=== PATIENT | female | born 1950 | race Caucasian/White ===

== ENCOUNTER 2022-03-25 08:07 | Outpatient (CLI) | payer MEDICARE, SELFPAY ==
--- NOTE | 2022-03-25 08:15 | CRLHL7_ITS ---
For Patients: As a result of the Century Cures Act, medical imaging exams and procedure reports are released immediately into your electronic medical record. You may view this report before your referring provider. If you have questions, please contact your health care provider. BILATERAL SCREENING DIAGNOSTIC MAMMOGRAM WITH COMPUTER-AIDED DETECTION AND TOMOSYNTHESIS CLINICAL HISTORY: Screening. TECHNIQUE: CC and MLO views were obtained. These mammographic images have been obtained using full-field digital technique. These mammographic images were interpreted with the benefit of computer-aided detection. Breast Tomosynthesis was used in this interpretation. COMPARISON FILM: 11/15/2019. BREAST COMPOSITION: There are scattered areas of fibroglandular density. FINDINGS: 1 cm possible asymmetry RIGHT superior breast 6 cm from the nipple. Negative findings LEFT breast. IMPRESSION: Possible RIGHT breast asymmetry. ASSESSMENT: BI-RADS Category 0: Incomplete: Need Additional Imaging Evaluation and/or Prior Mammograms for Comparison RECOMMENDATION: Recommend MLO spot compression view and a 90-degree lateral view. Additionally, ultrasound may be needed during the diagnostic evaluation. The [facility] will contact the patient for follow-up. A lay language report of this examination will be provided to the patient. Yolande Carlisle M.D. Diagnostic/Breast Radiologist [email or web address] STUART/tia weber/Dictated by: Yolande Carlisle MD @ 03/25/2022 11:30:00 AM (Electronically Signed)
== END 2022-03-25 08:08 | disposition home or self-care (01) ==
PROVIDERS: PCP Family Medicine; Visit Provider Family Medicine
DX: Z12.31 Encounter for screening mammogram for malignant neoplasm of breast (principal); R92.8 Other abnormal and inconclusive findings on diagnostic imaging of breast; N63.10 Unspecified lump in the right breast, unspecified quadrant
CPT/HCPCS: 77063; 77067

== ENCOUNTER 2022-04-01 09:28 | Outpatient (CLI) | payer MEDICARE, BC, SELFPAY ==
--- NOTE | 2022-04-01 09:45 | CRLHL7_ITS ---
For Patients: As a result of the Cures Act, medical imaging exams and procedure reports are released immediately into your electronic medical record. You may view this report before your referring provider. If you have questions, please contact your health care provider. DIGITAL DIAGNOSTIC RIGHT MAMMOGRAM USING TOMOSYNTHESIS AND COMPUTER-AIDED DETECTION RIGHT BREAST ULTRASOUND CLINICAL HISTORY: RIGHT breast mass/asymmetry. COMPARISON: 03/25/2022. TECHNIQUE: Digital RIGHT mammogram in two projections. Tomosynthesis and CAD utilized. Real-time ultrasound imaging of RIGHT breast with imaging documentation. BREAST COMPOSITION: There are areas of scattered fibroglandular density. FINDINGS: 3D spot compression MLO and 3D true lateral RIGHT breast mammograms submitted. Persistent asymmetric density upper RIGHT breast without architectural distortion or suspicious calcifications. Targeted RIGHT breast ultrasound performed at 12 o`clock 4 cm from the nipple. In this location is a small subcutaneous bruise/hematoma corresponding to the additional clinical history of injury associated with her dog. No suspicious mass or fluid collection. No abscess. IMPRESSION: Incidental subcutaneous bruise/hematoma measuring less than 1 cm RIGHT breast 12 o`clock 4 cm from the nipple. No evidence of malignancy. RECOMMENDATIONS: Annual BILATERAL screening mammography. Results and recommendations discussed with the patient. BI-RADS Category 2: Benign A lay language report of this examination will be provided to the patient. Dictated by Angelo Faulkner MD @ 04/01/2022 11:00:42 AM j/Dictated by: Angelo Faulkner MD @ 04/01/2022 11:01:00 AM (Electronically Signed)
--- NOTE | 2022-04-01 10:15 | CRLHL7_ITS ---
For Patients: As a result of the Cures Act, medical imaging exams and procedure reports are released immediately into your electronic medical record. You may view this report before your referring provider. If you have questions, please contact your health care provider. PLEASE SEE DIGITAL DIAGNOSTIC RIGHT MAMMOGRAM PERFORMED SAME DAY CRL:tia weber/Dictated by: Angelo Faulkner MD @ 04/01/2022 11:00:00 AM (Electronically Signed)
== END 2022-04-01 09:29 | disposition home or self-care (01) ==
LOC: MAMMO 09:28
PROVIDERS: PCP Family Medicine; Visit Provider Family Medicine
DX: N63.10 Unspecified lump in the right breast, unspecified quadrant (principal); R92.8 Other abnormal and inconclusive findings on diagnostic imaging of breast
CPT/HCPCS: 76642; 77065; G0279

== ENCOUNTER 2023-07-29 15:27 | Outpatient (CLI) | payer MEDICARE, BC, SELFPAY ==
--- NOTE | 2023-07-29 16:00 | CRLHL7_ITS ---
For Patients: As a result of the Century Cures Act, medical imaging exams and procedure reports are released immediately into your electronic medical record. You may view this report before your referring provider. If you have questions, please contact your health care provider. INDICATION: ABD PAIN TECHNIQUE: CT abdomen and pelvis acquired with 100 cc Isovue 370 IV contrast. COMPARISON: None. FINDINGS: Lower chest: 1 millimeter right lower lobe indeterminate pulmonary nodule. Trace pericardial fluid. Dense mitral annular calcifications. ABDOMEN: Liver: Likely diffuse hepatic steatosis. Gallbladder and biliary: Normal gallbladder without radiopaque stone. Normal caliber bile ducts. Spleen: Normal size and enhancement. Pancreas: Normal enhancement without peripancreatic inflammatory changes or ductal dilatation. Adrenal glands: Normal adrenal glands. Kidneys and ureters: Normal enhancement. No radio-opaque calculi. No hydroureteronephrosis. GI tract: The stomach is relatively decompressed. Normal caliber small and large bowel loops. Appendix is not definitively visualized. Colonic diverticulosis with adjacent inflammatory stranding at the level of the sigmoid. Vascular structures: Normal caliber aorta with atherosclerotic calcifications. Lymph nodes: No lymphadenopathy in the abdomen or pelvis by size criteria. Peritoneum: No free air, free fluid, or focal drainable fluid collection. PELVIS: Genitourinary system: Normal urinary bladder. Age-appropriate uterus. SKELETAL STRUCTURES AND SOFT TISSUES: Lumbar spondylosis. IMPRESSION: Acute uncomplicated diverticulitis. Please note that all CT scans at this facility use dose modulation, iterative reconstruction, and/or weight-based dosing when appropriate to reduce radiation dose to as low as reasonably achievable. Dictated by Angelo Ochoa MD @ 07/29/2023 4:29:52 PM (Electronically Signed)
== END 2023-07-29 15:28 | disposition home or self-care (01) ==
LOC: CT 15:28
PROVIDERS: PCP Family Medicine; Visit Provider Family Medicine
DX: R10.9 Unspecified abdominal pain (principal); K57.92 Diverticulitis of intestine, part unspecified, without perforation or abscess without bleeding; R10.2 Pelvic and perineal pain
CPT/HCPCS: 74177; Q9967

== ENCOUNTER 2023-09-12 06:09 | Outpatient (CLI) | payer MEDICARE, BC, SELFPAY ==
--- NOTE | 2023-09-12 08:09 | W.ANESCHARGE ---
Anesthesia Charges Start Date/Time Anesthesia Start Date: 09/12/23 Anesthesia Start Time: 07:30 Stop Date/Time Anesthesia Stop Date: 09/12/23 Anesthesia Stop Time: 08:07
--- NOTE | 2023-09-12 08:33 | W.ANESCHARGE ---
Anesthesia Charges Start Date/Time Anesthesia Start Date: 09/12/23 Anesthesia Start Time: 07:30 Stop Date/Time Anesthesia Stop Date: 09/12/23 Anesthesia Stop Time: 08:07 Summary Extremes of Age - Over 70 or under 1: MDA
== END 2023-09-12 06:10 | disposition home or self-care (01) ==
LOC: OP CLINIC 06:09
PROVIDERS: PCP Family Medicine; Visit Provider Surgery
DX: Z12.11 Encounter for screening for malignant neoplasm of colon (principal); K63.5 Polyp of colon; K57.30 Diverticulosis of large intestine without perforation or abscess without bleeding; K64.4 Residual hemorrhoidal skin tags; Z86.010 Personal history of colon polyps
CPT/HCPCS: 00811; 45385; 88305; 99100; J2704

== ENCOUNTER 2023-09-14 07:43 | Outpatient (CLI) | payer MEDICARE, BC, SELFPAY ==
--- NOTE | 2023-09-14 08:15 | MM_ITS ---
Patient: BANDAR VINSON Facility:?[facility] Patient ID:?[id number] Site Patient ID:?[id number]. Site :?[id number] Study:?XRay-Breast Bilateral 3D W/CAD-09/14/2023 8:18:07 AM Ordering Physician:?Jonny Briceño Final Report: BILATERAL SCREENING MAMMOGRAM WITH COMPUTER-AIDED DETECTION AND TOMOSYNTHESIS TECHNIQUE: CC and MLO views were obtained. These mammographic images have been obtained using full-field digital technique. These mammographic images were interpreted with the benefit of computer-aided detection. Breast Tomosynthesis was used in this interpretation. COMPARISON FILM: 04/01/22, 03/25/22, 11/18/20. FINDINGS: There are scattered areas of fibroglandular density. IMPRESSION: There is no radiographic evidence for malignancy. ASSESSMENT: BI-RADS Category 2: Benign RECOMMENDATION: Routine screening mammogram in 1 year. A lay language report of this examination will be provided to the patient. Angelo Faulkner M.D. Diagnostic Radiologist [email or web address] DSM/sp R& Transcribed: 4:45 p.m. SP/Dictated by: Angelo Faulkner MD @ 09/23/2023 1:07:00 PM Signed by:?Angelo Faulkner MD @09/23/2023 4:48:20 PM (Electronic Signature)
== END 2023-09-14 07:44 | disposition home or self-care (01) ==
LOC: MAMMO 07:44
PROVIDERS: PCP Family Medicine; Visit Provider Family Medicine
DX: Z12.31 Encounter for screening mammogram for malignant neoplasm of breast (principal); Z00.00 Encounter for general adult medical examination without abnormal findings; E78.5 Hyperlipidemia, unspecified; E66.9 Obesity, unspecified; F32.A Depression, unspecified; Z13.21 Encounter for screening for nutritional disorder; Z13.29 Encounter for screening for other suspected endocrine disorder; Z13.1 Encounter for screening for diabetes mellitus
CPT/HCPCS: 77063; 77067; 80048; 80061; 82607; 84443

== ENCOUNTER 2023-10-10 12:38 | Outpatient (CLI) | payer MEDICARE, BC, SELFPAY | END 2023-10-10 12:39 | disposition home or self-care (01) | LOC: AMB 10-17 16:16 | PROVIDERS: PCP Family Medicine; Visit Provider Family Medicine | DX: K92.0 Hematemesis (principal) | CPT/HCPCS: A0425; A0427 ==

== ENCOUNTER 2023-10-10 13:34 | Emergency (ER) | payer MEDICARE, BC, SELFPAY ==
[2023-10-10] VITALS (10 sets, daily range): BP systolic 127–180; BP diastolic 71–121; PULSE 99–128; RESP 12–20; TEMP 37.1; O2SAT 92–99; BMI 33.3
--- NOTE | 2023-10-10 14:13 | ED.NAVMDI ---
HPI - Nausea/Vomiting/Diarrhea General Time Seen by Provider: 14:13 Date Seen: 10/10/23 Chief complaint: Nausea/Vomiting Stated complaint: Vomiting Time Seen by Provider: 10/10/23 13:56 Source: patient, EMS and RN notes reviewed Mode of arrival: EMS Limitations: no limitations History of Present Illness HPI Narrative: This patient is coming into the ED via EMS with complaint of abdominal discomfort, vomiting/ongoing nausea and diarrhea. Her symptoms started last night. She states that she was initially throwing up bile but this am noticed some blood in the emesis. She is not having large volumes of juan blood coming up. No fevers/chills noted. Has not had any recent travel. She told nursing staff that she wasn't having any pain but does tell me that her stomach in general is uncomfortable. She has had history of diverticulitis, history of a tubal ligation, history of section, history of appendectomy. She notes that the bile burned her lower lip, she states she is sure that the bile going over lower lip irritated it. She feels like her throat hurts to come hurts to swallow, this started after the vomiting. She states EMS could not get an IV but did give her oral Zofran which has helped her nausea. MD elicited complaint: nausea, vomiting, diarrhea and abdominal pain Related Data Home Medications Medication Instructions Recorded Confirmed ascorbate calcium (vitamin C) 500 1 g PO QDAY 10/04/22 09/14/23 mg tablet cholecalciferol (vitamin D3) 125 125 mcg PO QDAY 10/04/22 09/14/23 mcg (5,000 unit) tablet (Vitamin D3) folic acid 1 mg tablet 3 mg PO QDAY 10/04/22 09/14/23 multivitamin 1 tab PO QAM 10/04/22 09/14/23 infliximab 100 mg intravenous 400 mg IV Q8W 03/24/23 09/14/23 solution methotrexate sodium 2.5 mg tablet 0.9 mg PO .Weekly 03/24/23 09/14/23 turmeric 400 mg capsule 400 mg PO .QD 03/24/23 09/14/23 elderberry fruit 200 mg capsule mg PO 09/14/23 09/14/23 prednisone 2.5 mg tablet 2.5 mg PO Q OTHER DAY 09/14/23 09/14/23 Previous Rx's Medication Instructions Recorded epinephrine 0.3 mg/0.3 mL 0.3 mg (0.3 mL) IM Q4H PRN 05/18/22 injection, auto-injector (EpiPen anaphylaxis #2 ea 2-Harjinder) fluocinonide 0.05 % topical 1 applic topical BID #60 mL 10/04/22 solution diphenhydramine HCl 25 mg tablet 25 mg PO Q6H PRN allergic reaction 01/07/23 #30 tabs alprazolam 0.25 mg tablet 0.25 mg PO TID PRN anxiety #30 tabs 08/19/23 clonazepam 0.5 mg tablet 0.5 mg PO BID PRN anxiety #30 tabs 08/19/23 albuterol sulfate 90 mcg/actuation 2 puff inhalation QID PRN 09/14/23 aerosol inhaler (Ventolin HFA) shortness of breath or wheezing #25.5 grams atorvastatin 10 mg tablet 10 mg PO QHS #90 tabs 09/14/23 escitalopram oxalate 10 mg tablet 10 mg PO QDAY #90 tabs 09/14/23 Allergies Allergy/AdvReac Type Severity Reaction Status Date / Time bee venom protein (honey bee) Allergy Severe Anaphylaxis Verified 10/10/23 16:29 codeine Allergy Severe Difficulty Verified 10/10/23 16:29 Breathing erythromycin base Allergy Severe Difficulty Verified 10/10/23 16:29 Breathing Penicillins Allergy Severe Difficulty Verified 10/10/23 16:29 Breathing Sulfa (Sulfonamide Allergy Severe throat Verified 10/10/23 16:29 Antibiotics) swelling infliximab [From Remicade] Allergy Unknown Verified 10/10/23 16:29 Influenza A virus Allergy Severe throat Uncoded 10/10/23 16:29 swelling Review of Systems Status of ROS: Reports: 6 or more systems reviewed and unremarkable except as noted in History and below [facility] Medical History Diverticulitis ?K57.92 - Diverticulitis of intestine, part unspecified, without perforation or abscess without bleeding (ICD-10) Anaphylactic reaction ?T78.2XXA - Anaphylactic shock, unspecified, initial encounter (ICD-10) Surgical History History of tubal ligation ?Z98.51 - Tubal ligation status (ICD-10) History of tonsillectomy and adenoidectomy ?Z90.89 - Acquired absence of other organs (ICD-10) History of section ?Z98.891 - History of uterine scar from previous surgery (ICD-10) History of breast biopsy ?Z98.890 - Other specified postprocedural states (ICD-10) History of appendectomy ?Z90.49 - Acquired absence of other specified parts of digestive tract (ICD-10) Social History Smoking Status: Former smoker Non-prescribed substance use: denies use Little interest or pleasure in doing things: nearly every day Feeling down, depressed, or hopeless: nearly every day Exam Const: Vital Signs, click to edit/add: Vital Signs - 24 hr 10/10/23 13:40 10/10/23 15:28 10/10/23 16:01 Temperature 98.7 F Pulse Rate 109 H Pulse Rate [Right Pulse Oximeter] 128 H Pulse Rate [orthos tatic lying Pulse Oximeter] Pulse Rate [orthos tatic sitting Puls e Oximeter] Pulse Rate [orthos tatic standing Pul se Oximeter] Respiratory Rate 20 16 Blood Pressure 180/98 H Blood Pressure [Ri ght Upper Arm] 171/103 H Blood Pressure [or thostatic lying Ri ght Arm] Blood Pressure [or thostatic sitting Right Arm] Blood Pressure [or thostatic standing Right Arm] Pulse Oximetry 99 93 94 Oxygen Delivery Me thod Room Air 10/10/23 17:02 10/10/23 17:32 10/10/23 18:02 Temperature Pulse Rate 110 H 109 H 111 H Pulse Rate [Right Pulse Oximeter] Pulse Rate [orthos tatic lying Pulse Oximeter] Pulse Rate [orthos tatic sitting Puls e Oximeter] Pulse Rate [orthos tatic standing Pul se Oximeter] Respiratory Rate 14 14 14 Blood Pressure 172/96 H 158/93 H 133/92 H Blood Pressure [Ri ght Upper Arm] Blood Pressure [or thostatic lying Ri ght Arm] Blood Pressure [or thostatic sitting Right Arm] Blood Pressure [or thostatic standing Right Arm] Pulse Oximetry 92 92 93 Oxygen Delivery Me thod 10/10/23 18:33 10/10/23 19:02 Temperature Pulse Rate 109 H Pulse Rate [Right Pulse Oximeter] Pulse Rate [orthos tatic lying Pulse Oximeter] 106 H Pulse Rate [orthos tatic sitting Puls e Oximeter] 114 H Pulse Rate [orthos tatic standing Pul se Oximeter] 113 H Respiratory Rate 12 Blood Pressure 159/121 H Blood Pressure [Ri ght Upper Arm] Blood Pressure [or thostatic lying Ri ght Arm] 164/92 H Blood Pressure [or thostatic sitting Right Arm] 164/96 H Blood Pressure [or thostatic standing Right Arm] 172/103 H Pulse Oximetry 96 Oxygen Delivery Me thod This 73-year-old female is alert, interactive, no apparent distress, lying in exam bed 2. She looks like she does not feel well, face flushed without rash but is able speak in complete sentences, is very pleasant. Sclera clear, pupils equal round, conjugate gaze. Oropharynx with dry mucosa not glistening. Her lower lip is slightly to the right with asymmetrical swelling. Appears to maybe be about twice swollen what it normally is. In her posterior pharynx her uvula is mildly erythematous and swollen. Her speech is otherwise normal, neck is supple without any adenopathy or masses. Lungs are clear, good air entry, no wheezing or crackles. CV regular rate and rhythm, no murmur. Abdomen is obese but soft, bowel sounds are active but not overly so. She has some mild diffuse tenderness but no rebound or guarding. No masses felt. Documenting provider has reviewed patient's vital signs: yes Course Course ED Course: We will initiate an IV, IV fluids and Zofran. Does look like patient has had some forceful vomiting with her uvula and soft palate becoming edematous, lower lip irritated to either by the forceful vomiting or as she said the bile going over the lower lip. No evidence of any airway compromise, do not think this is an allergic reaction. We will get full complement of labs, consider abdominal imaging once I have seen some of her labs back. Did also order IV Protonix for any component of possible gastritis, Jessica-Pizarro tear. Reevaluation(s) Time of Reevaluation #1: 15:54 Reevaluation #1: Reviewed with patient that her white blood count is significantly elevated at 23,000 three thousand. She states her headache is worsening a bit. She remembers she had a spell similar to this where she ended up at [facility], had a headache, had nausea vomiting and diarrhea. She states her blood pressure spiked with it. They believed to be COVID per her report. Likely not COVID in the setting the with the elevated white blood count but will do the test given her concerns. She states she has only had 1 COVID vaccination because she is allergic to it. Time of Reevaluation #2: 17:59 Time of Reevaluation #3: 18:08 Reevaluation #3: Reviewed with patient that her abdominal CT showing no acute pathology. She states when she went to the bathroom and wipes she found blood on the underwear, states it is coming from her rectal area. She was able to get up out of the bed, had her lean over, she has large non thrombosed hemorrhoidal tissue, can see a little piece of blood clot. Reviewed with her that she has hemorrhoids that are likely bleeding. Nothing is actively extravasating at this time. With the recurrent diarrhea, the wiping has probably aggravated this. Her is here now, she states she is terrified of going home, terrified of her symptoms returning. She does not think she can do it. I did order another L of lactated Ringer's, some Reglan and Benadryl for her headache as well as some recurrent nausea and abdominal discomfort she is feeling. We reviewed that this is very likely a viral gastroenteritis, she is on immune modulating medicines for her psoriatic arthritis. She states she picks up things quite easily. We discussed Jessica-Pizarro tear from forceful vomiting. This should be a self-limited condition, do think it will be so for her as we have seen no recurrent have a dense of any upper GI bleeding. Additional Reevaluation(s): 7:43 p.m.: Did have orthostatics done after talking to our hospitalist. Patient is not orthostatic. Her is worried about her going home, just wants her to be comfortable. I have spent some time discussing with them viral gastroenteritis. Hopefully the nausea and vomiting will not return as it was. We can send her home with [facility], they are going to get this from [facility]. Her lower lip hang in uvula are not any more swollen, in fact maybe look a little better. She has developed no other stigmata that would suggest that this was an allergic reaction, her clinical history is reported that this is likely a viral gastroenteritis given her workup here. Her headache in stomach symptoms are better after the subsequent fluids, Reglan and and Benadryl. We have discussed that the diarrhea will likely continue, do not recommend antidiarrheals in an acute diarrheal illness, certainly not at this point anyway. She has no evidence of a surgical abdomen, no evidence of needing ongoing fluid resuscitation. We have reviewed should she worsen, they are expected to return, re-evaluation can be done. With the patient not exhibiting true orthostatic changes, our hospitalist did not feel like she requires hospitalization. She did have a small pulse rise but her blood pressure actually went up as well. Vital Signs Vital signs: Initial Vital Signs Temperature 98.7 F 10/10/23 13:40 Temperature Source Temporal Artery Scan 10/10/23 13:40 Pulse Rate 128 H 10/10/23 13:40 Respiratory Rate 20 10/10/23 13:40 Blood Pressure 171/103 H 10/10/23 13:40 Blood Pressure Mean 125 H 10/10/23 13:40 Blood Pressure Position Sitting 10/10/23 13:40 Pulse Oximetry 99 10/10/23 13:40 Oxygen Delivery Method Room Air 10/10/23 13:40 Vital Signs Temperature 98.7 F 10/10/23 13:40 Pulse Rate 128 H 10/10/23 13:40 Respiratory Rate 20 10/10/23 13:40 Blood Pressure 171/103 H 10/10/23 13:40 Pulse Oximetry 99 10/10/23 13:40 Oxygen Delivery Method Room Air 10/10/23 13:40 Temperature 98.7 F 10/10/23 13:40 Pulse Rate 106 H 10/10/23 19:02 Respiratory Rate 12 10/10/23 18:33 Blood Pressure 164/92 H 10/10/23 19:02 Pulse Oximetry 96 10/10/23 18:33 Oxygen Delivery Method Room Air 10/10/23 13:40 Medications Administered Medications: Generic Name Dose Route Start Last Admin Trade Name Freq PRN Reason Stop Dose Admin Diphenhydramine HCl 25 mg 10/10/23 17:57 10/10/23 18:30 Diphenhydramine 50 Mg/Ml Inj IVP 10/10/23 17:58 25 mg ONCE ONE Administration Lactated Ringer's 1,000 mls @ 500 mls/hr 10/10/23 17:58 10/10/23 18:30 Lactated Ringers 1000 Ml IV 10/10/23 19:57 500 mls/hr .Q2H MAXIM Administration Metoclopramide HCl 10 mg/ 102 mls @ 306 mls/hr 10/10/23 17:57 10/10/23 18:50 Sodium Chloride IVPB 10/10/23 17:58 Infused ONCE ONE Infusion Discontinued Medications Generic Name Dose Route Start Last Admin Trade Name Freq PRN Reason Stop Dose Admin Sodium Chloride 1,000 mls @ 500 mls/hr 10/10/23 14:27 10/10/23 17:35 0.9 % Sodium Chloride 1000 Ml IV 10/10/23 16:26 Infused .Q2H MAXIM Infusion Ondansetron HCl 4 mg 10/10/23 14:25 10/10/23 15:28 Ondansetron 2 Mg/Ml Inj IVP 10/10/23 14:26 4 mg ONCE ONE Administration Pantoprazole Sodium 40 mg 10/10/23 14:28 10/10/23 15:28 Pantoprazole Sodium 40 Mg Inj IVP 10/10/23 14:29 40 mg ONCE ONE Administration MDM - Nausea/Vomiting/Diarrhea Lab Data Attestation: I reviewed the patient's lab results. Labs: Lab Results 10/10/23 10/10/23 Range/Units 15:28 16:40 WBC 23.51 H (4.50-11.00) K/uL RBC 4.76 (4.00-5.20) m/uL Hgb 15.1 (12.0-16.0) gm/dL Hct 44.1 (33.0-51.0) % MCV 93 (80-100) fL MCH 32 (26-34) pg MCHC 34 (32-36) gm/dL RDW Coeff of Adalberto 13.0 (11.5-15.5) % Plt Count 352 (140-440) K/uL Neut % (Auto) 90.0 H (42.0-72.0) % Lymph % (Auto) 5.4 L (20-44) % Curry % (Auto) 4.4 (0.0-11.0) % Eos % (Auto) 0.0 (0.0-7.0) % Baso % (Auto) 0.0 (0.0-3.0) % Neut # (Auto) 21.20 H (1.7-7.0) K/uL Lymph # (Auto) 1.30 (0.90-2.90) K/uL Curry # (Auto) 1.00 H (0.00-0.90) K/UL Eos # (Auto) 0.00 (0.00-0.50) K/uL Baso # (Auto) 0.00 (0.00-0.30) K/uL Abs Immat Gran (auto) 0.00 (0.00-0.30) K/uL Imm/Tot Granulo (auto) 0.2 % Diff Slide Review Acceptable Review (Acceptable) Sodium 137 (135-149) mmol/L Potassium 3.7 (3.6-5.1) mmol/L Chloride 102 (96-114) mmol/L Carbon Dioxide 29 (20-32) mmol/L Anion Gap 6 L (7-15) mEq/L BUN 14 (7-30) mg/dL Creatinine 0.6 (0.5-1.5) mg/dL Estimated Creat Clear 46.43 Estimated GFR 96 ml/min Glucose 133 H (60-115) mg/dL Lactate 1.3 (0.5-1.9) mmol/L Calcium 11.2 H (8.4-10.6) mg/dL Total Bilirubin 1.8 H (0.1-1.5) mg/dL Direct Bilirubin 0.0 (0.0-0.5) mg/dL AST 32 (12-35) U/L ALT 36 H (4-35) U/L Alkaline Phosphatase 91 (40-150) U/L C-Reactive Protein 1.0 (0.5-1.0) mg/dL Total Protein 8.0 (6.0-8.3) g/dL Albumin 4.8 (3.3-5.0) g/dL SARS-CoV-2 (PCR) Negative SARS-CoV-2 (Negative) Influenza Type A (PCR) Negative PCR FLU A (Negative) Influenza Type B (PCR) Negative PCR FLU B (Negative) RSV (PCR) Negative PCR RSV (Negative) Imaging Data CT scan - abdomen: Attestation: I have reviewed the pertinent imaging results. Radiologist's impression: Patient: BANDAR VINSON Facility:[facility] Patient ID:?[id number] Site Patient ID:?[id number]. Site :?[id number] Study:?CT-Abdomen/Pelvis W/ 98CC ISOVUE 370-10/10/2023 4:35:54 PM Ordering Physician:SUNITA Final Report: INDICATION: Abdominal pain with nausea, vomiting and diarrhea. Leukocytosis. TECHNIQUE: CT abdomen and pelvis acquired with 98 cc Isovue 370 IV contrast. COMPARISON: None. FINDINGS: Lower chest: Unremarkable. Liver: Fatty infiltration. No focal Gallbladder and bile ducts: Lesion. Pancreas: Unremarkable. No mass or inflammation. Spleen: Unremarkable. Normal in size. No masses. Adrenal glands: Unremarkable. No nodules. Kidneys: Unremarkable. No suspicious masses, stones, or hydronephrosis. GI tract: Mild wall thickening amongst multiple diverticula in the sigmoid colon. This could represent chronic diverticular inflammation. GI tract otherwise unremarkable. Post appendectomy. Vasculature: Abdominal aorta is normal in caliber. Mesenteric arteries are patent. Lymph nodes: No lymphadenopathy. Peritoneum/Abdominal Wall: Unremarkable. No sign of mass or infiltration. No free air or significant free fluid. Pelvis: Unremarkable. Bones: No suspicious bone lesion. Moderate midbody compression deformity of the L1 vertebral body. Posterior disc protrusion at L4-5. IMPRESSION: No acute or specific finding to explain abdominal pain or leukocytosis. Please note that all CT scans at this facility use dose modulation, iterative reconstruction, and/or weight-based dosing when appropriate to reduce radiation dose to as low as reasonably achievable. Dictated by Jonathan Roldan MD @ 10/10/2023 5:09:02 PM (Electronic Signature) Discharge Plan Discharge Clinical Impression: Gastroenteritis and colitis, viral Patient Disposition: Home, Self-Care Condition: Stable Instructions: Gastroenteritis (ED), Nutrition Tips for Relief of Diarrhea (ED) Additional Instructions: Use Zofran per prescription instructions as needed for any recurrent nausea, recommend taking it if you feel nauseated so that you do not vomit. This will help prevent any further irritation of your throat, lip and prevent any further ribs in the lining of the esophagus. You likely had a small Jessica-Pizarro tear which happens with vomiting. You are not anemic, her hemoglobin has been stable. If your hemorrhoids do bother you, can use [id number] medicines for these. You may have ongoing diarrhea, this may last for at least a few days, follow nutrition tips for relief of diarrhea handout. Employed good handwashing, this is likely an infectious viral gastroenteritis and certainly is likely contagious. If you have any concerns about worsening symptoms, if vomiting is happening despite Zofran use, do need to seek re-evaluation. Activity Level: Activity as Tolerated Prescriptions: No Action methotrexate sodium 2.5 mg tablet 0.9 mg PO .Weekly infliximab 100 mg recon soln 400 mg IV Q8W elderberry fruit 200 mg capsule PO prednisone 2.5 mg tablet 2.5 mg PO Q OTHER DAY escitalopram oxalate 10 mg tablet 10 mg PO QDAY Qty: 90 3RF atorvastatin 10 mg tablet 10 mg PO QHS Qty: 90 3RF albuterol sulfate [Ventolin HFA] 90 mcg/actuation HFA aerosol inhaler 2 puff inhalation QID PRN (Reason: shortness of breath or wheezing) Qty: 25.5 3RF Rx Instructions: Keep on file, please folic acid 1 mg tablet 3 mg PO QDAY cholecalciferol (vitamin D3) [Vitamin D3] 125 mcg (5,000 unit) tablet 125 mcg PO QDAY multivitamin Tablet 1 tab PO QAM ascorbate calcium (vitamin C) 500 mg tablet 1 g PO QDAY fluocinonide 0.05 % solution 1 applic topical BID Qty: 60 2RF turmeric 400 mg capsule 400 mg PO .QD epinephrine [EpiPen 2-Harjinder] 0.3 mg/0.3 mL auto-injector 0.3 mg IM Q4H PRN (Reason: anaphylaxis) Qty: 2 3RF diphenhydramine HCl 25 mg tablet 25 mg PO Q6H PRN (Reason: allergic reaction) Qty: 30 6RF clonazepam 0.5 mg tablet 0.5 mg PO BID PRN (Reason: anxiety) Qty: 30 1RF alprazolam 0.25 mg tablet 0.25 mg PO TID PRN (Reason: anxiety) Qty: 30 1RF Follow Up/Referrals: Jonny Briceño MD [Primary Care Provider] - Stand Alone Forms: [facility] Info Instructions
[2023-10-10] MEDS: PANTOPRAZOLE SODIUM 40 MG INJ IVP (15:28)
[2023-10-10] MEDS: 0.9 % SODIUM CHLORIDE 1000 ml 1,000 ML 500 ML IV (15:28)
[2023-10-10] MEDS: ONDANSETRON 2 MG/ML inj 4 MG IVP (15:28)
[2023-10-10 15:36] LABS: Lactate* 1.3 mmol/L (0.5-1.9)
[2023-10-10 15:39] LABS: Hematocrit 44.1 % (33.0-51.0); Hemoglobin* 15.1 gm/dL (12.0-16.0); Immature Granulocytes Pct Auto 0.2 %; Lymphocytes Percent Auto 5.4 % (20-44); Mean Corpuscular HGB Conc 34 gm/dL (32-36); Mean Corpuscular Hemoglobin 32 pg (26-34); Mean Corpuscular Volume 93 fL (80-100); Monocytes Percent Auto 4.4 % (0.0-11.0); Platelet Count* 352 K/uL (140-440); Red Blood Count 4.76 m/uL (4.00-5.20); White Blood Count* 23.51 K/uL (4.50-11.00)
[2023-10-10 15:42] LABS: Slide Review Reflex Yes
[2023-10-10 15:51] LABS: Albumin* 4.8 g/dL (3.3-5.0); Chloride* 102 mmol/L (96-114)
[2023-10-10 15:52] LABS: Potassium* 3.7 mmol/L (3.6-5.1); Sodium* 137 mmol/L (135-149)
--- NOTE | 2023-10-10 15:52 | CT_ITS ---
Patient: BANDAR VINSON Facility:?[facility] Patient ID:?[id number] Site Patient ID:?[id number]. Site :?[id number] Study:?CT-Abdomen/Pelvis W/ 98CC ISOVUE 370-10/10/2023 4:35:54 PM Ordering Physician:SUNITA Final Report: INDICATION: Abdominal pain with nausea, vomiting and diarrhea. Leukocytosis. TECHNIQUE: CT abdomen and pelvis acquired with 98 cc Isovue 370 IV contrast. COMPARISON: None. FINDINGS: Lower chest: Unremarkable. Liver: Fatty infiltration. No focal Gallbladder and bile ducts: Lesion. Pancreas: Unremarkable. No mass or inflammation. Spleen: Unremarkable. Normal in size. No masses. Adrenal glands: Unremarkable. No nodules. Kidneys: Unremarkable. No suspicious masses, stones, or hydronephrosis. GI tract: Mild wall thickening amongst multiple diverticula in the sigmoid colon. This could represent chronic diverticular inflammation. GI tract otherwise unremarkable. Post appendectomy. Vasculature: Abdominal aorta is normal in caliber. Mesenteric arteries are patent. Lymph nodes: No lymphadenopathy. Peritoneum/Abdominal Wall: Unremarkable. No sign of mass or infiltration. No free air or significant free fluid. Pelvis: Unremarkable. Bones: No suspicious bone lesion. Moderate midbody compression deformity of the L1 vertebral body. Posterior disc protrusion at L4-5. IMPRESSION: No acute or specific finding to explain abdominal pain or leukocytosis. Please note that all CT scans at this facility use dose modulation, iterative reconstruction, and/or weight-based dosing when appropriate to reduce radiation dose to as low as reasonably achievable. Dictated by Jonathan Roldan MD @ 10/10/2023 5:09:02 PM Signed by:?Jonathan Roldan MD @10/10/2023 5:09:02 PM (Electronic Signature)
[2023-10-10 15:54] LABS: Creatinine* 0.6 mg/dL (0.5-1.5); Est. Creatinine Clearance* 46.43; Estimated Glomerular Filt Rate 96 ml/min
[2023-10-10 15:55] LABS: Alanine Aminotransferase* 36 U/L (4-35); Alkaline Phosphatase* 91 U/L (40-150); Anion Gap 6 mEq/L (7-15); Aspartate Amino Transferase* 32 U/L (12-35); Bilirubin Total* 1.8 mg/dL (0.1-1.5); Blood Urea Nitrogen* 14 mg/dL (7-30); Calcium* 11.2 mg/dL (8.4-10.6); Carbon Dioxide* 29 mmol/L (20-32); Glucose* 133 mg/dL (60-115)
[2023-10-10 17:24] LABS: PCR FLU A Negative PCR FLU A (Negative); PCR FLU B Negative PCR FLU B (Negative); PCR RSV Negative PCR RSV (Negative); SARS PCR* Negative SARS-CoV-2 (Negative)
[2023-10-10 18:17] LABS: Slide Review Acceptable Review (Acceptable)
[2023-10-10] MEDS: diphenhydrAMINE 50 MG/ML inj 25 MG IVP (18:30)
[2023-10-10] MEDS: LACTATED RINGERS 1000 ML 1,000 ML 500 ML IV (18:30)
[2023-10-10] MEDS: METOCLOPRAMIDE HCL 10 MG in 0.9 % SODIUM CHLORIDE 100 ml 100 ML 306 MG IVPB (18:30)
== END 2023-10-10 20:10 | disposition home or self-care (01) ==
PROVIDERS: Emergency Provider Family Medicine; PCP Family Medicine
DX: K52.9 Noninfective gastroenteritis and colitis, unspecified (principal)
CPT/HCPCS: 36415; 74177; 80053; 82248; 83605; 85025; 86140; 87631; 94761; 96365; 96375; 99284; C9113; J1200; J2405; J2765; J7030; J7120; Q9967

== ENCOUNTER 2024-05-25 10:11 | Outpatient (CLI) | payer MEDICARE, BC, SELFPAY | END 2024-05-25 10:12 | disposition home or self-care (01) | LOC: LKVREF 10:12 | PROVIDERS: PCP Family Medicine; Visit Provider Family Medicine | DX: R10.84 Generalized abdominal pain (principal) | CPT/HCPCS: 83690 ==

== ENCOUNTER 2024-09-24 11:27 | Outpatient (CLI) | payer MEDICARE, BC, SELFPAY | END 2024-09-24 11:28 | disposition home or self-care (01) | LOC: LKVREF 11:30 | PROVIDERS: PCP Family Medicine; Visit Provider Family Medicine | DX: L40.9 Psoriasis, unspecified (principal); Z01.818 Encounter for other preprocedural examination | CPT/HCPCS: 80076 ==

== ENCOUNTER 2024-10-08 13:03 | Outpatient (CLI) | payer MEDICARE, BC, SELFPAY ==
[2024-10-08] MEDS: PERFLUTREN LIPID MICROSPHERES 2 ML VIAL IVP (13:51)
== END 2024-10-08 13:04 | disposition home or self-care (01) ==
LOC: RAD 13:05
PROVIDERS: PCP Family Medicine; Visit Provider Family Medicine
DX: R94.31 Abnormal electrocardiogram [ECG] [EKG] (principal); I35.0 Nonrheumatic aortic (valve) stenosis; I07.1 Rheumatic tricuspid insufficiency; I34.0 Nonrheumatic mitral (valve) insufficiency
CPT/HCPCS: 93306; Q9957

== ENCOUNTER 2025-03-14 23:27 | Outpatient (CLI) | payer MEDICARE, BC, SELFPAY | END 2025-03-14 23:28 | disposition home or self-care (01) | LOC: AMB 03-15 13:44 | PROVIDERS: PCP Family Medicine; Visit Provider Family Medicine | DX: R11.2 Nausea with vomiting, unspecified (principal); R51.9 Headache, unspecified | CPT/HCPCS: A0425; A0427 ==

== ENCOUNTER 2025-03-15 00:06 | Emergency (ER) | payer MEDICARE, BC, SELFPAY ==
[2025-03-15] VITALS (28 sets, daily range): BP systolic 158–194; BP diastolic 76–98; PULSE 83–107; RESP 0–29; TEMP 36; O2SAT 93–98; BMI 35.4
--- OUTSIDE RECORDS SUMMARY | 2025-03-15 00:09 | XMS_ITS | Clinical Summary ---
Author Organization [facility] Address [address] [place] [id number] Care Team Providers Care Swimming Pool Attendant Name Role Phone Pcp, No Primary Care Provider Unavailabl e Allergies No known active allergies Medications ALPRAZolam (XANAX) 0.25 mg tablet Take 0.25 mg by mouth every 8 hours if needed. FOR ANXIETY 3 Active atorvastatin (LIPITOR) 10 mg tablet Take 10 mg by mouth at bedtime. 3 Active folic acid 1 mg tablet Take 3 mg by mouth every morning. 3 Active methotrexate (RHEUMATREX) 2.5 mg tablet Take 22.5 mg by mouth once weekly. Active mirtazapine (REMERON) 15 mg tabletIndication s:Insomnia, unspecified type Take 1 Tablet (15 mg) by mouth at bedtime. Please faill PINO - pt will come to pharmacy in 1 hr 30 Tablet 3 Active Active Problems Problem Noted Date Diagnosed Date Hyperlipidemia 02/12/2023 Psoriatic arthritis 02/12/2023 Elevated blood pressure read ing without diagnosis of hypertension 02/12/2023 Headache 02/12/2023 Vomiting 02/12/2023 Dehydration 02/12/2023 Pulmonary nodule 02/12/2023 Panic attack 02/12/2023 Sepsis 02/12/2023 Social History Tobacco Use Types Packs/Day Years Used Date Smoking Tobacco: Former Cigarettes Smokeless Tobacco: Never Tobacco Cessation:Counseling Given: Not Answered Alcohol Use Standard Drinks/Week Comments Not Currently 0 (1 standard drink = 0.6 oz pur e alcohol) Social Connections Answer Date Recorded Frequency of Communication with Friends and Fami ly Not on file 02/12/2023 Comments No Sex and Gender Information Value Date Recorded Sex Assigned at Not on file Legal Sex Female 6:00 PM CDT Gender Identity Not on file Sexual Orientation Not on file Obstetrics History Last Filed Vital Signs Vital Sign Reading Time Taken Comments Blood Pressure 150/88 02/13/2023 9:48 AM CDT Pulse 98 02/13/2023 7:47 AM CDT Temperature 37 C (98.6 F) 02/13/2023 7:47 AM CDT Respiratory Rate 18 02/13/2023 7:47 AM CDT Oxygen Saturation 96% 02/13/2023 7:47 AM CDT Inhaled Oxygen Concentration - - Weight 90.7 kg (200 lb) 02/11/2023 6:17 PM CDT Height 162.6 cm (5' 4) 02/11/2023 6:17 PM CDT Body Mass Index 34.33 02/11/2023 6:17 PM CDT Plan of Treatment Not on file Insurance MEDICARE PART A HB ONLY BLUE CROSS [place] BLUE MR PB ONLY Advance Directives * Full Code (Latest Code Status on File) Date Activated Date Inactivated Comments 02/12/2023 7:58 AM 02/13/2023 3:41 PM Question Answer Comments Code Status Discussion: Reviewed Preferences Care Teams Swimming Pool Attendant Relationship Specialty Start Date End Date Pcp, No . PCP - General 02/11/23
--- NOTE | 2025-03-15 00:11 | CRLHL7_ITS ---
For Patients: As a result of the Century Cures Act, medical imaging exams and procedure reports are released immediately into your electronic medical record. You may view this report before your referring provider. If you have questions, please contact your health care provider. Indication: Nausea, headache, stroke Technique: Noncontrast CT through the head with multiplanar reformats Comparison: CT head performed 02/11/2023 Findings: Brain: No acute hemorrhage. No definite acute infarct. No significant mass effect or midline shift. No gross evidence of a mass lesion or cerebral edema. Chronic appearing left caudate infarcts, though these are new from 2022 study. Mild chronic microvascular ischemic disease. Ventricles: No acute abnormality appreciated. Orbits, sinuses, mastoids: No acute abnormality appreciated. Trace sinus disease. Calvarium and soft tissues: No acute abnormality appreciated. Impression: There are new infarcts in the left caudate when compared to examination from 02/11/2023. These appear to be chronic at this time but correlation for left MCA territory symptoms would be recommended. No other acute abnormality is appreciated. Please note that all CT scans at this facility use dose modulation, iterative reconstruction, and/or weight-based dosing when appropriate to reduce radiation dose to as low as reasonably achievable. Dictated by Umair Harrison MD @ 03/15/2025 12:24:57 AM (Electronically Signed)
[2025-03-15] MEDS: PROCHLORPERAZINE 5 MG/ML VIAL IVP (00:42)
[2025-03-15 00:43] LABS: Hematocrit* 42.8 % (33.0-51.0); Hemoglobin* 13.9 gm/dL (12.0-16.0); Immature Granulocytes Pct Auto 1.2 %; Mean Corpuscular HGB Conc 33 gm/dL (32-36); Mean Corpuscular Hemoglobin 32 pg (26-34); Mean Corpuscular Volume 98 fL (80-100); RDW Coefficient of Variation % 13.5 % (11.5-15.5); Red Blood Count* 4.39 m/uL (4.00-5.20); White Blood Count* 18.38 K/uL (4.50-11.00)
[2025-03-15 00:44] LABS: Immature Granulocytes Abs Auto 0.20 K/uL (0.00-0.30); Lymphocytes Absolute Auto 2.30 K/uL (0.90-2.90); Slide Review Reflex No
[2025-03-15 00:51] LABS: Albumin* 4.3 g/dL (3.3-5.0); Chloride* 103 mmol/L (96-114); Sodium* 137 mmol/L (135-149)
[2025-03-15 00:52] LABS: Potassium* 3.8 mmol/L (3.6-5.1)
[2025-03-15 00:54] LABS: Alanine Aminotransferase* 26 U/L (4-35); Alkaline Phosphatase* 84 U/L (40-150); Anion Gap 10 mEq/L (7-15); Aspartate Amino Transferase* 26 U/L (12-35); Bilirubin Direct* 0.2 mg/dL (0.0-0.5); Bilirubin Total* 0.5 mg/dL (0.1-1.5); Blood Urea Nitrogen* 20 mg/dL (7-30); Carbon Dioxide* 24 mmol/L (20-32); Creatinine* 0.7 mg/dL (0.5-1.5); Est. Creatinine Clearance* 45.76; Estimated Glomerular Filt Rate 92 ml/min; Total Protein* 6.9 g/dL (6.0-8.3)
[2025-03-15 00:55] LABS: Calcium* 9.3 mg/dL (8.4-10.6); Glucose* 165 mg/dL (60-115)
[2025-03-15] MEDS: 0.9 % SODIUM CHLORIDE 500 ML 500 ML 1000 ML IV (01:23)
[2025-03-15] MEDS: METOPROLOL TARTRATE 1 MG/ML inj 5 MG IVP (02:36)
--- NOTE | 2025-03-15 04:45 | ED.GENADULT ---
HPI - General Adult General Date Seen: 03/15/25 Chief complaint: Headache/Migraine Stated complaint: stroke Time Seen by Provider: 03/15/25 00:28 Source: patient and family Mode of arrival: EMS Limitations: no limitations History of Present Illness HPI narrative: Patient is a 74-year-old female who comes in with concerns of headache and elevated blood pressure. Last time this happened was when she had norovirus and she is convinced that she must have it again. She has no GI symptoms. She does not take blood pressure medication. No chest pains or shortness of breath. She is on methotrexate and infliximab for psoriasis and psoriatic arthritis. She has had some lightheadedness. In looking back through her clinic chart she has had elevated blood pressures for 10 years but for some reason this is never been treated. When she checks her pressure at home it is always above 150 and most recently has been above 180 and 200 frequently. Related Data Home Medications ?Medication ?Instructions ?Recorded ?Confirmed ascorbate calcium (vitamin C) 500 1 g PO QDAY 10/04/22 10/16/24 mg tablet cholecalciferol (vitamin D3) 125 125 mcg PO QDAY 10/04/22 10/16/24 mcg (5,000 unit) tablet (Vitamin D3) folic acid 1 mg tablet 3 mg PO QDAY 10/04/22 10/16/24 multivitamin 1 tab PO QAM 10/04/22 10/16/24 turmeric 400 mg capsule 400 mg PO .QD 03/24/23 10/16/24 prednisone 2.5 mg tablet 2.5 mg PO Q OTHER DAY 09/14/23 10/16/24 elderberry fruit 200 mg capsule mg PO DAILY 05/25/24 10/16/24 infliximab 100 mg intravenous 500 mg IV .[id number] 09/24/24 10/16/24 solution methotrexate sodium 2.5 mg tablet See Rx Instructions PO .Weekly 09/24/24 10/16/24 mv-min-vit C-ascorb tab PO DAILY 09/24/24 10/16/24 Ql-Nhr-Aqz-herb #124 334 mg-1.7 mg chewable tablet (Airborne (ascorbate sodium)) ondansetron 4 mg disintegrating 4 mg PO Q6H PRN nausea/vomiting 09/24/24 10/16/24 tablet Previous Rx's ?Medication ?Instructions ?Recorded albuterol sulfate 90 mcg/actuation 2 puff inhalation QID PRN 09/14/23 aerosol inhaler (Ventolin HFA) shortness of breath or wheezing #25.5 grams diphenhydramine HCl 25 mg tablet 25 mg PO Q6H PRN allergic reaction 04/27/24 #30 tabs meclizine 25 mg tablet 25 mg PO QID PRN dizziness #30 tabs 10/16/24 ondansetron 4 mg disintegrating 4 mg PO Q6H PRN nausea and 10/16/24 tablet vomiting #12 tabs metoprolol succinate 50 mg 50 mg PO DAILY #30 tabs 03/15/25 tablet,extended release 24 hr (Toprol XL) ondansetron 8 mg disintegrating 8 mg PO TID PRN nausea and 03/15/25 tablet vomiting #15 tabs epinephrine 0.3 mg/0.3 mL 0.3 mg (0.3 mL) IM Q4H PRN 03/19/25 injection, auto-injector (EpiPen anaphylaxis #2 ea 2-Harjinder) Allergies Allergy/AdvReac Type Severity Reaction Status Date / Time bee venom protein (honey bee) Allergy Severe Anaphylaxis Verified 03/15/25 00:25 codeine Allergy Severe Difficulty Verified 03/15/25 00:25 Breathing erythromycin base Allergy Severe Difficulty Verified 03/15/25 00:25 Breathing Penicillins Allergy Severe Difficulty Verified 03/15/25 00:25 Breathing Sulfa (Sulfonamide Allergy Severe throat Verified 03/15/25 00:25 Antibiotics) swelling infliximab (From Remicade) Allergy Unknown hives Verified 03/15/25 00:25 Review of Systems Narrative: Review of systems is outlined above otherwise noted to be negative. [facility] Medical History (Updated 03/30/25 @ 00:01 by Background Daemon) Hyperlipidemia ?E78.5 - Hyperlipidemia, unspecified (ICD-10) Psoriasis ?L40.9 - Psoriasis, unspecified (ICD-10) Psoriatic arthritis ?L40.50 - Arthropathic psoriasis, unspecified (ICD-10) Abdominal pain ?R10.9 - Unspecified abdominal pain (ICD-10) Diverticulitis ?K57.92 - Diverticulitis of intestine, part unspecified, without perforation or abscess without bleeding (ICD-10) Anaphylactic reaction ?T78.2XXA - Anaphylactic shock, unspecified, initial encounter (ICD-10) Surgical History History of tubal ligation ?Z98.51 - Tubal ligation status (ICD-10) History of tonsillectomy and adenoidectomy ?Z90.89 - Acquired absence of other organs (ICD-10) History of section ?Z98.891 - History of uterine scar from previous surgery (ICD-10) History of breast biopsy ?Z98.890 - Other specified postprocedural states (ICD-10) History of appendectomy ?Z90.49 - Acquired absence of other specified parts of digestive tract (ICD-10) Social History Smoking Status: Former smoker Do you use any of these nicotine containing products: None Second hand tobacco smoke exposure: No How often do you have a drink containing alcohol: never How often do you have six or more drinks on one occasion: Never AUDIT-C Alcohol total score: 0 Non-prescribed substance use: denies use service: No Exam Narrative: Exam Narrative: Vitals noted. She complains of a severe headache. Her blood pressure is initially 194/96. HEENT: Conjunctiva clear. Tympanic membranes are pearly white bilaterally. Posterior pharynx is clear without erythema or exudate. Neck is supple without adenopathy, thyromegaly, carotid bruit. Lungs: Clear to auscultation in all corley. No wheezes, rales, rhonchi. Heart: Regular rate and rhythm without murmur. Abdomen: Soft and nontender. No guarding, rigidity, rebound. Bowel sounds are normal. No palpable masses. Extremities: No cyanosis or edema. Good distal pulses. Skin: No abnormalities noted of the exposed skin. Neurologic: Awake, alert, fully oriented. Neurologic exam is nonfocal. Const: Vital Signs, click to edit/add: Vital Signs - 24 hr 03/15/25 00:18 03/15/25 00:18 03/15/25 00:19 Temperature 96.8 F L Pulse Rate [Pulse Oximeter] 107 H Respiratory Rate 22 17 29 H Blood Pressure [Ri ght Upper Arm] 194/98 H Pulse Oximetry 98 Oxygen Delivery Me thod Room Air 03/15/25 00:20 03/15/25 00:30 03/15/25 00:40 Temperature Pulse Rate [Pulse Oximeter] Respiratory Rate 15 0 L 12 Blood Pressure [Ri ght Upper Arm] Pulse Oximetry 93 Oxygen Delivery Me thod 03/15/25 00:43 03/15/25 00:50 03/15/25 01:00 Temperature Pulse Rate [Pulse Oximeter] Respiratory Rate 13 17 17 Blood Pressure [Ri ght Upper Arm] Pulse Oximetry Oxygen Delivery Me thod 03/15/25 01:06 03/15/25 01:10 03/15/25 01:19 Temperature Pulse Rate [Pulse Oximeter] 89 Respiratory Rate 20 18 15 Blood Pressure [Ri ght Upper Arm] 178/87 H Pulse Oximetry 97 Oxygen Delivery Me thod Room Air 03/15/25 01:20 03/15/25 01:30 03/15/25 01:36 Temperature Pulse Rate [Pulse Oximeter] 88 Respiratory Rate 19 17 18 Blood Pressure [Ri ght Upper Arm] 185/86 H Pulse Oximetry 97 Oxygen Delivery Me thod Room Air 03/15/25 01:38 03/15/25 01:40 03/15/25 01:50 Temperature Pulse Rate [Pulse Oximeter] Respiratory Rate 16 17 10 L Blood Pressure [Ri ght Upper Arm] Pulse Oximetry Oxygen Delivery Me thod 03/15/25 01:58 03/15/25 02:00 03/15/25 02:06 Temperature Pulse Rate [Pulse Oximeter] 87 Respiratory Rate 18 21 Blood Pressure [Ri ght Upper Arm] 178/76 H Pulse Oximetry 96 96 Oxygen Delivery Me thod 03/15/25 02:10 03/15/25 02:14 03/15/25 02:20 Temperature Pulse Rate [Pulse Oximeter] Respiratory Rate 18 16 26 H Blood Pressure [Ri ght Upper Arm] Pulse Oximetry 97 97 96 Oxygen Delivery Me thod 03/15/25 02:30 03/15/25 02:34 03/15/25 02:35 Temperature Pulse Rate [Pulse Oximeter] Respiratory Rate 15 17 22 Blood Pressure [Ri ght Upper Arm] Pulse Oximetry 96 97 98 Oxygen Delivery Me thod 03/15/25 02:36 03/15/25 02:40 Temperature Pulse Rate [Pulse Oximeter] 83 Respiratory Rate 15 Blood Pressure [Ri ght Upper Arm] 158/86 H Pulse Oximetry 97 Oxygen Delivery Me thod Course Course ED Course: Patient seen and examined. CBC is unremarkable other than elevated white blood count. Basic metabolic panel is normal other than an elevated blood sugar. LFTs are normal. CT of her head is unremarkable. Reevaluation(s) Reevaluation #1: Patient was treated with 2 L of normal saline, lorazepam 1 mg IV, metoprolol of 5 mg IV. Her blood pressure came down significantly and her headache resolved. She had previously received Zofran from EMS and was given a dose of Compazine IV with good improvement in her nausea. We discussed the risks to not treating her blood pressure and opted to start her on Toprol-XL tonight. All questions were answered. Vital Signs Vital signs: Initial Vital Signs Temperature 96.8 F L 03/15/25 00:18 Temperature Source Temporal Artery Scan 03/15/25 00:18 Pulse Rate 107 H 03/15/25 00:18 Pulse Rhythm Regular 03/15/25 00:18 Respiratory Rate 22 03/15/25 00:18 Blood Pressure 194/98 H 03/15/25 00:18 Blood Pressure Mean 130 H 03/15/25 00:18 Blood Pressure Position Semi-Fowlers 03/15/25 00:18 Pulse Oximetry 98 03/15/25 00:18 Oxygen Delivery Method Room Air 03/15/25 00:18 Vital Signs Temperature 96.8 F L 03/15/25 00:18 Pulse Rate 107 H 03/15/25 00:18 Respiratory Rate 22 03/15/25 00:18 Blood Pressure 194/98 H 03/15/25 00:18 Pulse Oximetry 98 03/15/25 00:18 Oxygen Delivery Method Room Air 03/15/25 00:18 Temperature 96.8 F L 03/15/25 00:18 Pulse Rate 83 03/15/25 02:36 Respiratory Rate 15 03/15/25 02:40 Blood Pressure 158/86 H 03/15/25 02:36 Pulse Oximetry 97 03/15/25 02:40 Oxygen Delivery Method Room Air 03/15/25 01:36 Medications Administered Medications: Discontinued Medications Generic Name Dose Route Start Last Admin Trade Name Freq PRN Reason Stop Dose Admin Sodium Chloride 500 mls @ 1,000 mls/hr 03/15/25 00:54 03/15/25 03:08 0.9 % Sodium Chloride 500 Ml IV 03/15/25 01:23 Infused .Q30M MAXIM Infusion Sodium Chloride 1,000 mls @ 1,000 mls/hr 03/15/25 02:09 03/15/25 03:13 0.9 % Sodium Chloride 1000 Ml IV 03/15/25 03:08 Infused .Q1H MAXIM Infusion Lorazepam 1 mg 03/15/25 00:28 03/15/25 00:44 Lorazepam 2 Mg/Ml Inj IVP 1 mg Q6H PRN Administration Metoprolol Tartrate 5 mg 03/15/25 02:11 03/15/25 02:36 Metoprolol Tartrate 1 Mg/Ml Inj IVP 03/15/25 02:12 5 mg ONCE ONE Administration Prochlorperazine 5 mg 03/15/25 00:28 03/15/25 00:42 Prochlorperazine 5 Mg/Ml Vial IVP 03/15/25 00:29 5 mg ONCE ONE Administration Medical Decision Making Lab Data Labs: Lab Results 03/15/25 Range/Units 00:22 WBC 18.38 H (4.50-11.00) K/uL RBC 4.39 (4.00-5.20) m/uL Hgb 13.9 (12.0-16.0) gm/dL Hct 42.8 (33.0-51.0) % MCV 98 (80-100) fL MCH 32 (26-34) pg MCHC 33 (32-36) gm/dL RDW Coeff of Adalberto 13.5 (11.5-15.5) % Plt Count 284 (140-440) K/uL Neut % (Auto) 79.7 H (42.0-72.0) % Lymph % (Auto) 12.5 L (20-44) % [place] % (Auto) 6.1 (0.0-11.0) % Eos % (Auto) 0.3 (0.0-7.0) % Baso % (Auto) 0.2 (0.0-3.0) % Neut # (Auto) 14.60 H (1.7-7.0) K/uL Lymph # (Auto) 2.30 (0.90-2.90) K/uL [place] # (Auto) 1.10 H (0.00-0.90) K/UL Eos # (Auto) 0.10 (0.00-0.50) K/uL Baso # (Auto) 0.00 (0.00-0.30) K/uL Abs Immat Gran (auto) 0.20 (0.00-0.30) K/uL Imm/Tot Granulo (auto) 1.2 % Sodium 137 (135-149) mmol/L Potassium 3.8 (3.6-5.1) mmol/L Chloride 103 (96-114) mmol/L Carbon Dioxide 24 (20-32) mmol/L Anion Gap 10 (7-15) mEq/L BUN 20 (7-30) mg/dL Creatinine 0.7 (0.5-1.5) mg/dL Estimated Creat Clear 45.76 Estimated GFR 92 ml/min Glucose 165 H (60-115) mg/dL Calcium 9.3 (8.4-10.6) mg/dL Total Bilirubin 0.5 (0.1-1.5) mg/dL Direct Bilirubin 0.2 (0.0-0.5) mg/dL AST 26 (12-35) U/L ALT 26 (4-35) U/L Alkaline Phosphatase 84 (40-150) U/L Total Protein 6.9 (6.0-8.3) g/dL Albumin 4.3 (3.3-5.0) g/dL Discharge Plan Discharge Clinical Impression: Hypertensive urgency Patient Disposition: Home, Self-Care Condition: Improved Additional Instructions: Start Toprol XL 50 mg daily. Monitor BP and follow up with PCP in 1 week. Stay hydrated. Zofran for nausea. Prescriptions: New metoprolol succinate [Toprol XL] 50 mg tablet extended release 24 hr 50 mg PO DAILY Qty: 30 0RF ondansetron 8 mg tablet,disintegrating 8 mg PO TID PRN (Reason: nausea and vomiting) Qty: 15 0RF No Action infliximab 100 mg recon soln 500 mg IV [id number] methotrexate sodium 2.5 mg tablet See Rx Instructions PO .Weekly Rx Instructions: orally WEEKLY; 7 tabs once weekly prednisone 2.5 mg tablet 2.5 mg PO Q OTHER DAY albuterol sulfate [Ventolin HFA] 90 mcg/actuation HFA aerosol inhaler 2 puff inhalation QID PRN (Reason: shortness of breath or wheezing) Qty: 25.5 3RF Rx Instructions: Keep on file, please elderberry fruit 200 mg capsule PO DAILY Airborne (ascorbate sodium) 334-1.7 mg tablet,chewable PO DAILY ondansetron 4 mg tablet,disintegrating 4 mg PO Q6H PRN (Reason: nausea/vomiting) ondansetron 4 mg tablet,disintegrating 4 mg PO Q6H PRN (Reason: nausea and vomiting) Qty: 12 1RF meclizine 25 mg tablet 25 mg PO QID PRN (Reason: dizziness) Qty: 30 2RF folic acid 1 mg tablet 3 mg PO QDAY cholecalciferol (vitamin D3) [Vitamin D3] 125 mcg (5,000 unit) tablet 125 mcg PO QDAY multivitamin Tablet 1 tab PO QAM ascorbate calcium (vitamin C) 500 mg tablet 1 g PO QDAY turmeric 400 mg capsule 400 mg PO .QD diphenhydramine HCl 25 mg tablet 25 mg PO Q6H PRN (Reason: allergic reaction) Qty: 30 6RF epinephrine [EpiPen 2-Harjinder] 0.3 mg/0.3 mL auto-injector 0.3 mg IM Q4H PRN (Reason: anaphylaxis) Qty: 2 1RF Follow Up/Referrals: Jonny Briceño MD [Primary Care Provider, Family Practice] Stand Alone Forms: [employer] Info Instructions
== END 2025-03-15 03:36 | disposition home or self-care (01) ==
PROVIDERS: Emergency Provider Family Medicine; PCP Family Medicine
DX: I16.0 Hypertensive urgency (principal)
CPT/HCPCS: 36415; 70450; 80048; 80076; 85025; 96374; 96375; 99283; 99284; J0780; J2060; J7030